=== PATIENT | female | born 1935 | race Caucasian/White ===

== ENCOUNTER 2018-02-03 19:28 | Emergency (ER) | payer MEDICARE, BC ==
[2018-02-03] MEDS ORDERED: Erythromycin OPTH OINT* APPLIC OINT RIGHT EYE ONE (20:40)
[2018-02-03] MEDS ORDERED: Amoxicillin/Clavulanate TAB* 875 MG PO ONE (20:42)
--- NOTE | 2018-02-03 20:43 | UC ---
Eye Complaint HPI - HPI Summary HPI Summary: PT AND HER DAUGHTER [place]. PT NOTED SOME ITCHING TO HER RIGHT UPPER EYE LID ABOUT 1 WEEK AGO. SHE TRIED TO SELF TX WITH OTC ALLERGY EYE DROPS WITH NO RELIEF. OVER THE PAST 2-3 DAYS, SHE NOTED A LITTLE BUMP AND RED SPOT TO HER UPPER OUTER LID THAT IS WORSENING. NO EYE PAIN, VISUAL CHANGES OR DISCHARGE. - History of Current Complaint Stated Complaint: LEFT EYE COMPLAINT Time Seen by Provider: 02/03/18 20:13 Hx Obtained From: Patient, Family/Meter Inspector Onset/Duration: Gradual Onset Timing: Constant Aggravating Factor(s): Nothing Alleviating Factor(s): Nothing Associated Signs And Symptoms: Negative: Photophobia, Drainage (Clear), Drainage (Purulent), Vision Impairment Bilateral - Risk Factors Penetrating Injury Risk Factor: Negative Globe Rupture Risk Factors: Negative Acute Glaucoma Risk Factors: Negative - Allergies/Home Medications Allergies/Adverse Reactions: Allergies Allergy/AdvReac Type Severity Reaction Status Date / Time environmental allergies Allergy Eyes Uncoded 02/03/18 20:25 Itchy/Swollen/Red/Watery Home Medications: Home Medications Acetaminophen TAB* [Tylenol TAB*] 325 mg PO Q4H PRN 02/03/18 [History Confirmed 02/03/18] Albuterol HFA INHALER* [Ventolin HFA Inhaler*] 2 puff INH Q6H PRN 02/03/18 [ History Confirmed 02/03/18] Ascorbic Acid TAB* [Vitamin C TAB*] 500 mg PO DAILY 02/03/18 [History Confirmed 02/03/18] Calcium Carb,Gluc/Mag Ox,Gluc [Calcium Magnesium Caplet] 1 each PO DAILY [History Confirmed 02/03/18] Cyanocobalamin (Vitamin B-12) [Vitamin B-12] 1,000 mcg PO DAILY 02/03/18 [ History Confirmed 02/03/18] Desloratidine (NF) [Clarinex (NF)] 5 mg PO DAILY 02/03/18 [History Confirmed ] Fluticasone NASAL SPRAY 50MCG* [Flonase NASAL SPRAY 50MCG*] 2 spray BOTH NARES DAILY 02/03/18 [History Confirmed 02/03/18] Fluticasone-Salmeterol 100-50* [Advair Diskus 100-50*] 1 puff INH BID 02/03/18 [ History Confirmed 02/03/18] L.acidoph,Paracasei, B.lactis [Probiotic] 1 each PO DAILY 02/03/18 [History Confirmed 02/03/18] Montelukast Sodium TAB* [Singulair TAB*] 10 mg PO DAILY 02/03/18 [History Confirmed 02/03/18] Multivit/Iron/Folic Acid/Hb179 [Mike Multi For Women Tab] 1 each PO DAILY [History Confirmed 02/03/18] Naphazoline/Pheniramine OPTH* [Naphcon-A*] 1 udc RIGHT EYE QID PRN 02/03/18 [ History Confirmed 02/03/18] Abbott-3 Fatty Acids/Fish Oil [Fish Oil 1,000 mg Capsule] 1 each PO DAILY [History Confirmed 02/03/18] Potassium 99 mg PO DAILY 02/03/18 [History Confirmed 02/03/18] Pseudoephedrine TAB* [Sudafed TAB*] 30 mg PO Q6H PRN 02/03/18 [History Confirmed 02/03/18] Red Yeast Rice 600 mg PO DAILY 02/03/18 [History Confirmed 02/03/18] Rivastigmine PATCH 9.5 MG(NF) [Exelon PATCH(NF)] 1 patch TRANSDERM DAILY [History Confirmed 02/03/18] Vitamin B Complex CAP* [B Complex CAP*] 1 cap PO DAILY 02/03/18 [History Confirmed 02/03/18] PMH/Surg Hx/FS Hx/Imm Hx - Additional Past Medical History Additional PMH: Allergies. Mild dementia - Surgical History Other Surgical History: cataracts - Social History Occupation: Retired Lives: With Family - Immunization History Vaccination Up to Date: Yes Review of Systems Constitutional: Negative Skin: Negative Eyes: Other - R upper lid red and swelling ENT: Negative Respiratory: Negative Cardiovascular: Negative Gastrointestinal: Negative Genitourinary: Negative Motor: Negative Neurovascular: Negative Musculoskeletal: Negative Neurological: Negative Psychological: Negative Is Patient Immunocompromised?: No All Other Systems Reviewed And Are Negative: Yes Physical Exam Triage Information Reviewed: Yes Appearance: Well-Appearing Vital Signs Reviewed: Yes Eyes: Positive: Other: - R upper lateral lid with small area of swelling and mild local erythema. There is no circumfrential swelling or erythema. lids everted and no FB's. AC's clear. conjunctiva are clear. pupils s/p cataract. eomi. no auricular adenopathy. ENT: Positive: Pharynx normal, TMs normal, Other - hearing aides removed and re[ laced by pt for ear exams.. Negative: Nasal congestion, Nasal drainage Neck: Positive: Supple, Nontender, No Lymphadenopathy Respiratory: Positive: Lungs clear, Normal breath sounds Cardiovascular: Positive: RRR, No Murmur Abdomen Description: Positive: Nontender, No Organomegaly, Soft Bowel Sounds: Positive: Present Musculoskeletal: Positive: ROM Intact Neurological: Positive: Alert Psychological: Positive: Normal Response To Family, Age Appropriate Behavior Skin Exam: Normal Eye Complaint Course/Dx - Course Course Of Treatment: no concern for orbital cellulitis. exam is c/w a chalazion and very localized secondary skin infecion. will tx with topical and po antibiotics. pt and daughter agree to stop the otc drops since not helping. pt in area for about 7-10 days thus referal given to a local eye physician for a recheck. pt and daughter advise, go to ER for changes or worsening. - Differential Dx/Diagnosis Provider Diagnoses: Chalazion R upper lid with secondary local infection. Discharge - Sign-Out/Discharge Documenting (check all that apply): Patient Departure - Discharge Plan Condition: Stable Disposition: HOME Prescriptions: Amoxicillin/Clavulanate TAB* [Augmentin TAB 875*] 875 mg PO BID #13 tab Patient Education Materials: Chalazion (ED) Referrals: Kari Benavides MD [Medical Doctor] - Additional Instructions: CALL THE OFFICE OF DR BENAVIDES AND MAKE AN APPOINTMENT FOR A RECHECK IN 2-3 DAYS. GO TO THE ER FOR ANY WORSENING. USE A TINY STRIP OF THE ERYTHROMYCIN EYE OINTMENT IN THE RIGHT LOWER LID 3X'S DAILY FOR 7 DAYS. - Billing Disposition and Condition Condition: STABLE Disposition: Home
== END 2018-02-03 20:57 | disposition home or self-care (01) ==
LOC: UCCORT 19:28
DX: H00.11 Chalazion right upper eyelid (principal); H00.021 Hordeolum internum right upper eyelid; F03.90 Unspecified dementia, unspecified severity, without behavioral disturbance, psychotic disturbance, mood disturbance, and anxiety
CPT/HCPCS: 99203; A9270-GY; G0463